=== PATIENT | male | born 1960 | race Caucasian/White ===

== ENCOUNTER → 2016-11-10 | Outpatient (CLI) | payer MEDICARE ==
[~2016-11-10] MED LIST: CIPRO500 MG PO; HUMALOG100 UNIT/1 SQ; TRAMADOL HCL50 MG PO
[2016-11-10 08:37] LABS: BASO % 0.7 % (0.0-1.0); EOS % 0.6 % (1.0-4.0); HEMATOCRIT 38.1 % (42.0-52.0); HEMOGLOBIN 12.9 g/dl (14.0-18.0); LYMPH # 2.4 10*3/uL (1.3-4.4); LYMPH % 43.9 % (27.0-41.0); MEAN CELL VOLUME 90.9 fl (80.0-94.0); MEAN CORPUSCULAR HGB 30.8 pg (27.0-31.0); MEAN CORPUSCULAR HGB CONC 33.9 g/dl (33.0-37.0); MEAN PLATELET VOLUME 9.8 fl (9.6-12.3); MONO # 0.5 10*3/uL (0.1-1.0); MONO % 9.3 % (3.0-9.0); NEUT # 2.4 10*3/uL (2.3-7.9); NEUT % 45.3 % (47.0-73.0); PLATELET COUNT AUTOMATED 171 10*3/uL (130-400); RED BLOOD COUNT 4.19 10*6/uL (4.50-5.90); RED CELL DISTRI WIDTH 13.7 % (0-14.5); WHITE BLOOD COUNT 5.4 10*3/uL (4.8-10.8)
[2016-11-10 08:56] LABS: HEMOGLOBIN A1c 6.7 % (4.8-5.6)
[2016-11-10 09:06] LABS: ALBUMIN 3.2 gm/dl (3.1-4.5); ALKALINE PHOSPHATASE 93 U/L (45-117); BILIRUBIN, DIRECT 0.1 mg/dL (0.0-0.2); BILIRUBIN, TOTAL 0.5 mg/dl (0.2-1.0); BUN 7 mg/dl (7-24); CARBON DIOXIDE 27 mmol/L (21-32); CHLORIDE 102 mmol/L (98-107); CHOLESTEROL 156 mg/dL (<200); EST GLOM FILT AFRICAN AMERICAN > 60 ml/min; FREE T4 1.06 ng/dl (0.76-1.46); GLUCOSE 184 mg/dL (65-99); HDL CHOLESTEROL 40 mg/dl (40-60); LDL CHOLESTEROL 96 mg/dL (9-159); POTASSIUM 3.4 mmol/L (3.5-5.1); SGOT/AST 13 IU/L (3-35); SGPT/ALT 18 U/L (12-78); SODIUM 142 mmol/L (136-145); T3 UPTAKE 31 % (31-39); TOTAL PROTEIN 7.3 gm/dL (6.4-8.2); TRIGLYCERIDES 101 mg/dl (<150); VLDL CHOLESTEROL 20 mg/dL (6-40)
== END | disposition home or self-care (01) ==
LOC: LAB 08:21
PROVIDERS: Nurse Practitioner Family
DX: Z79.899 Other long term (current) drug therapy (principal)

== ENCOUNTER 2016-12-14 15:26 | Emergency (ER) | payer MEDICARE ==
[~2016-12-14] VITALS: Wt 80.7 kg
[2016-12-14] MEDS ORDERED: LISINOPRIL10 M1 PO (15:32)
[2016-12-14] MEDS ORDERED: LANTUS100 U/ML SC (15:33)
[2016-12-14] MEDS ORDERED: DIAZEPAM5 MG PO (15:33)
[2016-12-14] MEDS ORDERED: CLOPIDOGREL75 MG PO (15:33)
[2016-12-14] MEDS ORDERED: RISPERIDONE4 MG PO (15:33)
[2016-12-14] MEDS ORDERED: ATORVASTATIN CA80 M1 PO (15:33)
[2016-12-14] MEDS ORDERED: METFORMIN HCL500 MG PO (15:33)
[2016-12-14] MEDS ORDERED: DIVALPROEX SOD500 M1 PO (15:33)
[2016-12-14 18:59] VITALS: BP 146/73
== END 2016-12-14 19:27 | disposition short-term general hospital (02) ==
LOC: ED 15:26
DX: I63.9 Cerebral infarction, unspecified (principal); F17.200 Nicotine dependence, unspecified, uncomplicated; Z79.4 Long term (current) use of insulin; W10.9XXA Fall (on) (from) unspecified stairs and steps, initial encounter; Y93.89 Activity, other specified; Y92.9 Unspecified place or not applicable; Y99.9 Unspecified external cause status

== ENCOUNTER 2017-02-06 17:23 | Inpatient (IN) | payer MEDICARE ==
[~2017-02-06] VITALS: Ht 170.2 cm; Wt 76.8 kg
--- NOTE | ~2017-02-06 | CON ---
[place], [place] REPORT OF CONSULTATION [id number] UNIT #: [id number] ROOM: 405 DOCTOR: REKHA CHAIREZ MD BIRTHDATE: [birth year] DOS: REASON FOR CONSULTATION: Recurrent strokes. HISTORY OF PRESENT ILLNESS: The patient is a 56-year-old man who has a history of type 2 diabetes mellitus and hypertension. He was otherwise in a normal state of health until 06/2016 when he reportedly had a stroke. He tells me that he presented to the Emergency Room and was transferred to the [facility] in [place]. Those records are not available to me at this time and the patient is not sure how extensive workup he had. He apparently was transferred again to [facility] and again those records are not available. The patient states that since his initial presentation in June, he has had 5 additional strokes. He describes trouble speaking during these episodes and clumsiness on his left side. He presents on this admission with inability to walk and new weakness on his right side as well as involuntary movements of his right arm. Since he has been in the hospital, he has had a CAT scan of the brain, which was unremarkable. He has had an MRI and MRA of the brain that shows an acute left basal ganglia infarct and an old right basal ganglia infarct, but no carotid stenosis or aneurysm. Cardiology was asked to assist in his assessment. Reportedly, the patient did have a Holter monitor done as an outpatient from [place]. There was some confusion. In that, the patient stated it was done by Dr. Beasley. I have reviewed the records from [facility] and we have not previously had any association with the patient or his evaluation. PAST MEDICAL HISTORY: Includes: 1. Type 2 diabetes mellitus. 2. Hypertension. 3. Tobacco abuse. 4. Reportedly, 6 strokes since 07/11/2016. 5. MRI of the brain 02/07/2017 shows an acute left basal ganglion infarct and an old right basal ganglion infarct. No carotid stenosis or aneurysm were seen. 6. Echocardiogram 02/08/2017, normal left ventricular size with mild left ventricular hypertrophy, normal left ventricular systolic and diastolic functions, normal valves, no cardiac source of embolism obvious. MEDICATIONS PRIOR TO ADMISSION: Aspirin 81 mg daily, atorvastatin 80 mg daily, clopidogrel 75 mg daily, diazepam 5 mg b.i.d., divalproex 500 mg 2 tablets daily, vitamin D 50,000 units daily, Lexapro 5 mg daily, haloperidol 5 mg at bedtime, levofloxacin 500 mg daily, lisinopril 20 mg daily, mirtazapine 45 mg at bedtime, prednisone 10 mg on a tapering dose schedule, insulin NovoLog 8 units subcutaneously t.i.d. and Lantus 40 units subcutaneously at bedtime. ALLERGIES: The patient has no known drug allergies. REVIEW OF SYSTEMS: The patient denies diplopia. He has had difficulty with his speech. He has felt clumsy on his left side and now is weak on his right. He also has involuntary movements of his right arm. He denies syncope. He denies nausea or vomiting. He denies fevers, chills, sweats or recent weight change. [place], [place] REPORT OF CONSULTATION NAME: ALONZO GONZALEZ UNIT #: [id number] ROOM: 405 DOCTOR: REKHA CHAIREZ MD BIRTHDATE: [birth year] He denies bleeding from any site. Denies any history of hemoptysis or hematemesis. He denies any blood in his urine or stools. He denies any swollen joints, but states that he gets a rash on his left hand every time he has a stroke. He denies any peripheral edema. The remainder of the review of systems is negative except as noted above. FAMILY HISTORY: The patient's father has had a stroke. There is no family history of early coronary disease. SOCIAL HISTORY: The patient does smoke a half pack of cigarettes a day. He does not consume alcohol. PHYSICAL EXAMINATION: GENERAL: The patient is a well-nourished white male who is awake, alert and oriented. VITAL SIGNS: Pulse is 63 and regular, blood pressure is 160/70. He is afebrile. He weighs 76.8 kg and has a body mass index of 26.5. HEENT: Normocephalic, atraumatic. Extraocular muscles are intact. Sclerae are clear. Pupils are round and reactive to light. Oral mucosa is moist. Tongue is midline. NECK: Supple. He has no jugular distention. Carotids are full. I heard no bruits. He had no neck or supraclavicular masses. No thyromegaly. LUNGS: Respirations are unlabored. His chest is clear to auscultation and percussion. He has no presacral edema or chest wall tenderness. CARDIOVASCULAR: His heart has a regular rhythm. He has a fourth heart sound, but no third heart sound or murmur. The PMI is not displaced. There is no precordial heave, lift or thrill. ABDOMEN: Soft and normoactive without masses, organomegaly or bruits. EXTREMITIES: Showed no clubbing, cyanosis or edema. Peripheral pulses are easily palpated bilaterally. LABORATORY DATA: I reviewed his electrocardiogram, which shows sinus rhythm with early repolarization changes. No acute changes are seen. His echocardiogram as noted above shows no cardiac source of embolism. Hemoglobin is 12.7, white count 14,300, platelet count 225,000. Urinalysis is essentially unremarkable. Sodium is 143, potassium 4.1, chloride 100, CO2 28, BUN 17, creatinine 0.69. Sugar is 195. IMPRESSIONS: Multiple bilateral strokes of various ages documented by MRI of the brain. This suggests a central vascular source rather than carotid vascular disease. A cardiac source such as paroxysmal atrial fibrillation, left atrial myxoma, atrial septal defect with paradoxic emboli, etc., must be considered. Evaluation for hypercoagulable state also needs to be entertained. The patient has been evaluated twice at the [facility] and some of this evaluation may already be available. I strongly suggest that those records being obtained and reviewed. If he has not had a JOAO, that should be accomplished during this admission. Since he has already had bilateral strokes, I think that he should be anticoagulated with heparin and [place], [place] REPORT OF CONSULTATION NAME: [facility] [id number] UNIT #: [id number] ROOM: 405 DOCTOR: REKHA CHAIREZ MD BIRTHDATE: [birth year] possibly with an oral anticoagulant until his hypercoagulable evaluation and JOAO are available. [facility] and I thank the hospitalist physicians for asking our advice regarding the management of this patient. REKHA CHAIREZ MD CM:CONSTR:REPORT OF CONSULTATION 1451 02/09/17 2019 interface
--- NOTE | ~2017-02-06 | PR ---
[place], [place] PROGRESS NOTE NAME: ALONZO GONZALEZ UNIT #: [id number] ROOM: 405 DOCTOR: THOR GOODEN MD BIRTHDATE: [birth year] DOS: 02/12/2017 REASON FOR VISIT: The patient with CVA and syncope. INTERVAL HISTORY: The patient is feeling better. Denies any chest pain or shortness of breath. He is somewhat slow to respond to questions. Family is at bedside. No dizziness. No orthopnea, no visual symptoms. No fever or chills, no cough. No hemoptysis. VITAL SIGNS: Reviewed. MEDICATIONS: Reviewed. REVIEW OF SYSTEMS: Review of the 8 systems negative except as mentioned above. PHYSICAL EXAMINATION: EYES: Pupils are round and equal. No jaundice. GENERAL: The patient is alert and oriented. NECK: Supple. No distinct mass, no carotid bruit. CHEST: Symmetrical, nontender. LUNGS: Clear to auscultation bilaterally. HEART: Regular rhythm, no S3. ABDOMEN: Benign, nontender. Bowel sounds normal. EXTREMITIES: Showed no edema. Distal pulses are palpable. SKIN: Warm and dry. No cyanosis, no clubbing. IMPRESSION: 1. Recurrent cerebrovascular accidents, continue current medications including Coumadin, heparin. He needs to be on heparin until INR therapeutic at about 2.0. 2. Syncope, no recurrence. 3. Continue current medications. 4. Discussed with family and all the questions are answered. 5. He was scheduled to see doctor in [place] and he was advised that he need to see only 1 crime investigator special agent either [facility] in [place] or someone in [place] and the family will decide prior to discharge. [place], [place] PROGRESS NOTE NAME: ALONZO GONZALEZ UNIT #: [id number] ROOM: 405 DOCTOR: THOR GOODEN MD BIRTHDATE: [birth year] THOR GOODEN MD CM:PNTRANS 0927 THOR GOODEN MD 02/14/17 0612 interface
--- NOTE | ~2017-02-06 | WRIGHTHP ---
[place], [place] PATIENT HISTORY AND PHYSICAL EXAM NAME: ALONZO GONZALEZ [facility] #: [id number] UNIT #: [id number] ROOM: 405 DOCTOR: ABNER TIDWELL DO BIRTHDATE: [birth year] DOS: PRIMARY CARE PHYSICIAN: Dr. Remedios Gomez. The patient was seen and evaluated with the resident on 02/07/2017. Please see the resident's note for further details. ASSESSMENT: 1. Acute pneumonitis. 2. Dizziness. 3. Difficulty in ambulating with multiple falls on the day of admission. 4. Hypokalemia. 5. Diabetes mellitus type 2. 6. Hypertension. 7. Hyperlipidemia. 8. Tobacco abuse. 9. History of cerebrovascular accident in August of 2016 and November of 2016. The patient states he has no residual weakness from the strokes. 10. Bipolar disorder. 11. Depression. PLAN: Continue antibiotics, aerosol treatments and steroids. The patient will be kept again overnight. Physical therapy has been consulted. Continue supportive care. ABNER TIDWELL DO CM:HISPHYS:PATIENT HISTORY AND PHYSICAL EXAMINATION 1214 1259 ABNER TIDWELL DO 02/07/17 1259 interface
--- NOTE | ~2017-02-06 | PR ---
[place], [place] PROGRESS NOTE NAME: ALONZO GONZALEZ [facility] #: [id number] UNIT #: [id number] ROOM: 405 DOCTOR: REKHA CHAIREZ MD BIRTHDATE: [birth year] DOS: The patient was seen today at his bedside with family in attendance. He is a 56-year-old man who has had cryptogenic bilateral embolic strokes. He was evaluated at the [facility], but came into the hospital at [facility] with recurrent strokes on 02/06/2017. At the time of admission, he was taking aspirin and Plavix as antiplatelet therapies. He was not on full systemic anticoagulation. I requested records from [facility]. SUBJECTIVE: The patient was thoroughly evaluated for cryptogenic stroke at [facility]. This included an assessment for hypercoagulable state. The results were not available at the time the records were created. He also had a transesophageal echocardiogram, which showed no intracardiac shunt, no tumors and no cardiac source of emboli. At the time of his discharge, he was on aspirin and Eliquis. Plavix had been previously prescribed, but was stopped. Sometime between his discharge from [facility] and his admission here, he had gone back to the Plavix. As best I can tell from him and his partner either he did not get the prescription for Eliquis or the prescription was too expensive. In either case, he had gone back to aspirin and Plavix, which appears to not have been sufficient to prevent further strokes. PHYSICAL EXAMINATION: VITAL SIGNS: Today, his pulse is 68 and regular, blood pressure 138/70. He is afebrile. He weighs 76.8 kilograms with a body mass index of 26.5. HEENT: Normocephalic, atraumatic. Extraocular muscles are intact. Sclerae are clear. Pupils are equal, round and reactive to light. The oral mucosa is moist. Tongue is midline. NECK: Supple. He has no jugular distention. Carotids are full without bruits. He has no neck or supraclavicular masses. LUNGS: Respirations are unlabored. His chest is clear to auscultation and percussion. HEART: Has a regular rhythm with an S4 gallop, but no S3. ABDOMEN: Benign. EXTREMITIES: Showed no edema. IMPRESSION: Cryptogenic stroke, most likely of cardioembolic source. He may also have a hypercoagulable state, but thus far, his evaluation for this is incomplete. He does not show any signs of intracardiac mass, shunt, etc. We have not documented any atrial arrhythmias that could be a cause. PLAN: The patient is currently on a heparin infusion. We will start him on warfarin with a target INR between 2 and 3 and will continue his aspirin, but stop his Plavix. The patient and his partner were educated on the importance of full systemic anticoagulation as opposed to antiplatelet therapies and hopefully they will comply better in the future. [facility] and I thank the hospitalist physicians for asking our advice regarding the patient's care. [place], [place] PROGRESS NOTE NAME: ALONZO GONZALEZ UNIT #: [id number] ROOM: 405 DOCTOR: REKHA CHAIREZ MD BIRTHDATE: [birth year] REKHA CHAIREZ MD CM:PNTRANS 09 6 REKHA CHAIREZ MD 02/11/17135 interface
--- NOTE | ~2017-02-06 | PR ---
[place], [place] PROGRESS NOTE NAME: ALONZO GONZALEZ UNIT #: [id number] ROOM: 405 DOCTOR: THOR GOODEN MD BIRTHDATE: [birth year] DOS: 02/13/2017 REASON FOR VISIT: Syncope and recurrent strokes and tobacco use. HISTORY OF PRESENT ILLNESS: The patient is feeling better today. No chest pain, no shortness of breath, no dizziness, no edema, no orthopnea, no palpitations. He slept good last night. RHYTHM STRIPS: The patient is off the monitor. PHYSICAL EXAMINATION: VITAL SIGNS: Reviewed. Blood pressure 138/76, pulse 64, respirations 16. GENERAL: Alert, comfortable, in no acute distress. HEENT: Pupils round, equal. No jaundice. Tongue was moist and pharynx was clear. NECK: Supple. No distended neck veins. No carotid bruits. CHEST: Symmetrical, nontender. LUNGS: Clear to auscultation bilaterally. HEART: Regular rhythm, no S3. ABDOMEN: Benign, nontender. Bowel sounds normal. EXTREMITIES: Showed no edema. Distal pulses are palpable. SKIN: Warm and dry. No cyanosis, no clubbing. NEUROLOGIC: The patient is alert, oriented. No focal neurologic deficit. Medications and labs reviewed as available. IMPRESSION: 1. Syncope, details unknown. No recurrence. 2. Recurrent strokes. The patient had a workup done in [place]. His hypercoagulable tests are pending. Continue heparin. Today's INR is 2.4. If his INR is about 2 tomorrow, he can be discharged home and discontinue heparin. 3. Diabetes, per PCP. 4. Tobacco smoking. The patient counseled to quit smoking. PLAN: 1. There is no family at bedside at the time of my examination. 2. Possible discharge tomorrow. [place], [place] PROGRESS NOTE NAME: ALONZO GONZALEZ UNIT #: [id number] ROOM: 405 DOCTOR: THOR GOODEN MD BIRTHDATE: [birth year] THOR GOODEN MD CM:PNTRANS 1639 THOR GOODEN MD 02/13/173 interface
--- NOTE | ~2017-02-06 | PR ---
[place], [place] PROGRESS NOTE NAME: ALONZO GONZALEZ [facility] #: [id number] UNIT #: [id number] ROOM: 405 DOCTOR: REKHA CHAIREZ MD BIRTHDATE: [birth year] DOS: 02/11/2017 SUBJECTIVE: The patient was seen today, 02/11/2017, for followup of his cryptogenic strokes. As I mentioned in my notes yesterday, he has had several strokes since June of last year. He was evaluated at the [facility] where hypercoagulability workup was in progress. I do not have the results of that. A JOAO showed no evidence for cardiac source of emboli and specifically did not show an atrial septal defect, left atrial appendage thrombus or myxoma. He has worn monitors and thus far has only been found to have sinus rhythm. He presented to the hospital on this occasion with another stroke. The MRI shows that he does have bilateral apparently embolic phenomena. He has been placed on heparin and now on Coumadin and does seem to be recovering from his last stroke really well. It is notable that he was discharged from [facility] on a direct oral anticoagulant, but never took the pill as an outpatient. He is not sure if he was not given the prescription or he just never got the prescription filled. Because of cost issues, we are starting him on warfarin on this admission. PHYSICAL EXAMINATION: VITAL SIGNS: Today, his pulse is 80 and regular, blood pressure is 139/58. He is afebrile. NECK: Supple. He has no jugular distention. Carotids are full without bruits. LUNGS: Respirations are unlabored. His chest is clear to auscultation and percussion. HEART: Has a regular rhythm. He has a fourth heart sound, but no third heart sound. ABDOMEN: Benign. EXTREMITIES: Showed no edema. IMPRESSION: Cryptogenic stroke, most likely of cardioembolic source. A hypercoagulable state is also a possibility. The evaluation for hypercoagulable state is incomplete. PLAN: We will keep him on a heparin drip. He has been started on warfarin. His target INR will be between 2 and 3. I would keep him on heparin until he approaches his target. Close followup will be necessary to ensure compliance. [facility] Cardiology and I thank the hospitalist physicians for asking our advice regarding his care. [place], [place] PROGRESS NOTE NAME: ALONZO GONZALEZ UNIT #: [id number] ROOM: 405 DOCTOR: REKHA CHAIREZ MD BIRTHDATE: [birth year] REKHA CHAIREZ MD CM:PNTRANS 1609 0200 REKHA CHAIREZ MD 02/12/17 0158 interface
[2017-02-06 08:00] VITALS: BP 132/55
[~2017-02-06 17:23] MED LIST changes: +ATORVASTATIN CA80 M1 PO; +CLOPIDOGREL75 MG PO; +DIAZEPAM5 MG PO; +DIVALPROEX SOD500 M1 PO; +LANTUS100 U/ML SC; +LISINOPRIL10 M1 PO; +METFORMIN HCL500 MG PO; +RISPERIDONE4 MG PO
[2017-02-06 17:28] VITALS: BP 147/64
[2017-02-06 17:58] LABS: BASO % 0.3 % (0.0-1.0); EOS # 0.1 10*3/uL (0.0-0.4); EOS % 0.7 % (1.0-4.0); HEMATOCRIT 36.8 % (42.0-52.0); HEMOGLOBIN 12.9 g/dl (14.0-18.0); LYMPH # 2.4 10*3/uL (1.3-4.4); LYMPH % 27.1 % (27.0-41.0); MEAN CELL VOLUME 88.5 fl (80.0-94.0); MEAN CORPUSCULAR HGB CONC 35.1 g/dl (33.0-37.0); MONO # 0.5 10*3/uL (0.1-1.0); MONO % 5.5 % (3.0-9.0); NEUT # 5.9 10*3/uL (2.3-7.9); NEUT % 66.2 % (47.0-73.0); PLATELET COUNT AUTOMATED 184 10*3/uL (130-400); RED BLOOD COUNT 4.16 10*6/uL (4.50-5.90); WHITE BLOOD COUNT 8.9 10*3/uL (4.8-10.8)
[2017-02-06 18:14] LABS: ALBUMIN 3.1 gm/dl (3.1-4.5); ALKALINE PHOSPHATASE 89 U/L (45-117); BILIRUBIN, TOTAL 0.5 mg/dl (0.2-1.0); BUN 9 mg/dl (7-24); CARBON DIOXIDE 30 mmol/L (21-32); CHLORIDE 99 mmol/L (98-107); EST GLOM FILT AFRICAN AMERICAN > 60 ml/min; GLUCOSE 193 mg/dL (65-99); SGOT/AST 12 IU/L (3-35); SGPT/ALT 11 U/L (12-78); SODIUM 140 mmol/L (136-145); TOTAL PROTEIN 7.5 gm/dL (6.4-8.2)
[2017-02-06 18:41] VITALS: BP 171/62
[2017-02-06 19:02] VITALS: BP 161/69
[2017-02-06 19:27] VITALS: BP 162/67
[2017-02-06 19:55] LABS: LA>2 REFLEX 2 HR DRAW NOW
[2017-02-06 20:00] VITALS: BP 174/70
[2017-02-06] MEDS ORDERED: NOVOLOG10 ML SC (20:24)
[2017-02-06] MEDS ORDERED: ASPIRIN CHEWABL81 MG PO (20:24)
[2017-02-06] MEDS ORDERED: LEXAPRO5 M1 PO (20:26)
[2017-02-06] MEDS ORDERED: HALDOL5 MG PO (20:26)
[2017-02-06] MEDS ORDERED: MIRTAZAPINE45 MG PO (20:26)
[2017-02-06 23:06] LABS: BILIRUBIN NEGATIVE (NEGATIVE); BLOOD NEGATIVE (NEGATIVE); CLARITY CLEAR (CLEAR); COLOR YELLOW (YELLOW); GLUCOSE 2+ (NEGATIVE); KETONE TRACE (NEGATIVE); LEUKO ESTERASE NEGATIVE (NEGATIVE); NITRITE NEGATIVE (NEGATIVE); PH 6.5 (5.0-9.0); PROTEIN TRACE (NEGATIVE)
[2017-02-06 23:16] LABS: BACTERIA 1+; URINE REFLEX COMMENT NO (NO); WBC 0-2 wbc/hpf (0-5)
[2017-02-07] VITALS: BP 157/55
[2017-02-07 03:05] LABS: BASO % 0.5 % (0.0-1.0); EOS # 0.1 10*3/uL (0.0-0.4); EOS % 1.6 % (1.0-4.0); HEMATOCRIT 37.2 % (42.0-52.0); HEMOGLOBIN 12.8 g/dl (14.0-18.0); LYMPH # 2.5 10*3/uL (1.3-4.4); LYMPH % 32.7 % (27.0-41.0); MEAN CELL VOLUME 88.8 fl (80.0-94.0); MEAN CORPUSCULAR HGB 30.5 pg (27.0-31.0); MEAN CORPUSCULAR HGB CONC 34.4 g/dl (33.0-37.0); MEAN PLATELET VOLUME 10.8 fl (9.6-12.3); MONO # 0.5 10*3/uL (0.1-1.0); MONO % 6.8 % (3.0-9.0); NEUT # 4.5 10*3/uL (2.3-7.9); NEUT % 58.3 % (47.0-73.0); PLATELET COUNT AUTOMATED 189 10*3/uL (130-400); RED BLOOD COUNT 4.19 10*6/uL (4.50-5.90); WHITE BLOOD COUNT 7.7 10*3/uL (4.8-10.8)
[2017-02-07 03:21] LABS: HEMOGLOBIN A1c 7.5 % (4.8-5.6)
[2017-02-07 03:27] LABS: ALBUMIN 2.8 gm/dl (3.1-4.5); ALKALINE PHOSPHATASE 84 U/L (45-117); BILIRUBIN, TOTAL 0.4 mg/dl (0.2-1.0); BUN 8 mg/dl (7-24); CARBON DIOXIDE 31 mmol/L (21-32); CHLORIDE 101 mmol/L (98-107); CHOLESTEROL 121 mg/dL (<200); EST GLOM FILT AFRICAN AMERICAN > 60 ml/min; GLUCOSE 158 mg/dL (65-99); MAGNESIUM 1.8 mg/dL (1.5-2.1); PHOSPHOROUS 4.4 mg/dL (2.5-4.9); POTASSIUM 3.2 mmol/L (3.5-5.1); SGOT/AST 13 IU/L (3-35); SGPT/ALT 10 U/L (12-78); SODIUM 144 mmol/L (136-145); TOTAL PROTEIN 6.9 gm/dL (6.4-8.2); TRIGLYCERIDES 125 mg/dl (<150); VLDL CHOLESTEROL 25 mg/dL (6-40)
[2017-02-07 03:28] LABS: HDL CHOLESTEROL 39 mg/dl (40-60); LDL CHOLESTEROL 57 mg/dL (9-159)
[2017-02-07 03:43] LABS: VITAMIN D, 25-HYDROXY 10.1 ng/mL (30-100)
[2017-02-07 03:44] LABS: FOLIC ACID 7.95 ng/mL (>5.38)
[2017-02-07 12:00] VITALS: BP 162/72
[2017-02-07 16:00] VITALS: BP 157/74
[2017-02-07 20:00] VITALS: BP 153/67
[2017-02-08] VITALS: BP 178/88
[2017-02-08 03:58] VITALS: BP 172/80
[2017-02-08 05:39] LABS: BASO % 0.1 % (0.0-1.0); HEMATOCRIT 37.5 % (42.0-52.0); IG # 0.1 10*3/uL (0.0-0.1); LYMPH # 1.5 10*3/uL (1.3-4.4); LYMPH % 15.5 % (27.0-41.0); MEAN CELL VOLUME 87.6 fl (80.0-94.0); MEAN CORPUSCULAR HGB 30.4 pg (27.0-31.0); MEAN CORPUSCULAR HGB CONC 34.7 g/dl (33.0-37.0); MEAN PLATELET VOLUME 11.2 fl (9.6-12.3); MONO # 0.2 10*3/uL (0.1-1.0); MONO % 2.1 % (3.0-9.0); NEUT # 7.9 10*3/uL (2.3-7.9); NEUT % 81.6 % (47.0-73.0); PLATELET COUNT AUTOMATED 208 10*3/uL (130-400); RED BLOOD COUNT 4.28 10*6/uL (4.50-5.90); WHITE BLOOD COUNT 9.7 10*3/uL (4.8-10.8)
[2017-02-08 06:02] LABS: BUN 11 mg/dl (7-24); CARBON DIOXIDE 26 mmol/L (21-32); CHLORIDE 101 mmol/L (98-107); GLUCOSE 214 mg/dL (65-99); MAGNESIUM 1.9 mg/dL (1.5-2.1); POTASSIUM 3.6 mmol/L (3.5-5.1); SGPT/ALT 9 U/L (12-78); SODIUM 141 mmol/L (136-145)
[2017-02-08 06:05] LABS: ALKALINE PHOSPHATASE 82 U/L (45-117); BILIRUBIN, TOTAL 0.4 mg/dl (0.2-1.0); EST GLOM FILT AFRICAN AMERICAN > 60 ml/min; SGOT/AST 8 IU/L (3-35); TOTAL PROTEIN 7.3 gm/dL (6.4-8.2)
[2017-02-08 08:00] VITALS: BP 154/80
[2017-02-08 12:00] VITALS: BP 158/71
[2017-02-08 16:00] VITALS: BP 170/70
[2017-02-08 20:00] VITALS: BP 161/77
[2017-02-09] VITALS: BP 165/75
[2017-02-09 06:29] LABS: BASO % 0.1 % (0.0-1.0); HEMATOCRIT 37.3 % (42.0-52.0); HEMOGLOBIN 12.7 g/dl (14.0-18.0); IG # 0.1 10*3/uL (0.0-0.1); LYMPH % 14.1 % (27.0-41.0); MEAN CORPUSCULAR HGB 30.3 pg (27.0-31.0); MEAN PLATELET VOLUME 11.1 fl (9.6-12.3); MONO # 0.5 10*3/uL (0.1-1.0); MONO % 3.5 % (3.0-9.0); NEUT # 11.7 10*3/uL (2.3-7.9); NEUT % 81.6 % (47.0-73.0); PLATELET COUNT AUTOMATED 225 10*3/uL (130-400); RED BLOOD COUNT 4.19 10*6/uL (4.50-5.90); RED CELL DISTRI WIDTH 13.2 % (0-14.5); WHITE BLOOD COUNT 14.3 10*3/uL (4.8-10.8)
[2017-02-09 06:50] LABS: BUN 17 mg/dl (7-24); CARBON DIOXIDE 28 mmol/L (21-32); CHLORIDE 100 mmol/L (98-107); EST GLOM FILT AFRICAN AMERICAN > 60 ml/min; GLUCOSE 195 mg/dL (65-99); POTASSIUM 4.1 mmol/L (3.5-5.1); SODIUM 143 mmol/L (136-145)
[2017-02-09 08:00] VITALS: BP 158/76
[2017-02-09 12:00] VITALS: BP 163/71
[2017-02-09] MEDS ORDERED: LISINOPRIL20 MG PO (13:33)
[2017-02-09] MEDS ORDERED: PREDNISONE10 MG PO (13:33)
[2017-02-09] MEDS ORDERED: VITAMIN D50000 I3 PO (13:33)
[2017-02-09] MEDS ORDERED: LEVOFLOXACIN500 MG PO (13:33)
[2017-02-09 15:23] LABS: PROTHROMBIN TIME 10.7 SECONDS (9.0-12.4)
[2017-02-09 16:00] VITALS: BP 146/82
[2017-02-09 20:00] VITALS: BP 139/68
[2017-02-10] VITALS: BP 174/64
[2017-02-10 05:54] LABS: BASO % 0.1 % (0.0-1.0); EOS % 0.1 % (1.0-4.0); HEMOGLOBIN 14.2 g/dl (14.0-18.0); IG # 0.1 10*3/uL (0.0-0.1); LYMPH # 1.8 10*3/uL (1.3-4.4); LYMPH % 19.8 % (27.0-41.0); MEAN CELL VOLUME 89.3 fl (80.0-94.0); MEAN CORPUSCULAR HGB 30.9 pg (27.0-31.0); MEAN CORPUSCULAR HGB CONC 34.6 g/dl (33.0-37.0); MEAN PLATELET VOLUME 10.8 fl (9.6-12.3); MONO # 0.3 10*3/uL (0.1-1.0); MONO % 3.7 % (3.0-9.0); NEUT % 75.7 % (47.0-73.0); PLATELET COUNT AUTOMATED 238 10*3/uL (130-400); RED BLOOD COUNT 4.59 10*6/uL (4.50-5.90); RED CELL DISTRI WIDTH 13.1 % (0-14.5); WHITE BLOOD COUNT 9.3 10*3/uL (4.8-10.8)
[2017-02-10 06:10] LABS: BUN 17 mg/dl (7-24); CARBON DIOXIDE 30 mmol/L (21-32); CHLORIDE 98 mmol/L (98-107); EST GLOM FILT AFRICAN AMERICAN > 60 ml/min; GLUCOSE 235 mg/dL (65-99); POTASSIUM 4.1 mmol/L (3.5-5.1); SODIUM 137 mmol/L (136-145)
[2017-02-10 08:00] VITALS: BP 158/71
[2017-02-10 12:00] VITALS: BP 136/68
[2017-02-10 16:00] VITALS: BP 138/70
[2017-02-10 20:00] VITALS: BP 149/69
[2017-02-11] VITALS: BP 156/74
[2017-02-11 04:00] VITALS: BP 154/74
[2017-02-11 06:14] LABS: BASO % 0.1 % (0.0-1.0); HEMATOCRIT 37.8 % (42.0-52.0); IG # 0.1 10*3/uL (0.0-0.1); LYMPH # 2.9 10*3/uL (1.3-4.4); LYMPH % 26.6 % (27.0-41.0); MEAN CELL VOLUME 88.5 fl (80.0-94.0); MEAN CORPUSCULAR HGB 30.4 pg (27.0-31.0); MEAN CORPUSCULAR HGB CONC 34.4 g/dl (33.0-37.0); MEAN PLATELET VOLUME 10.3 fl (9.6-12.3); MONO # 0.6 10*3/uL (0.1-1.0); MONO % 5.4 % (3.0-9.0); NEUT # 7.4 10*3/uL (2.3-7.9); NEUT % 67.3 % (47.0-73.0); PLATELET COUNT AUTOMATED 217 10*3/uL (130-400); RED BLOOD COUNT 4.27 10*6/uL (4.50-5.90); RED CELL DISTRI WIDTH 13.1 % (0-14.5); WHITE BLOOD COUNT 10.9 10*3/uL (4.8-10.8)
[2017-02-11 06:48] LABS: BUN 18 mg/dl (7-24); CARBON DIOXIDE 29 mmol/L (21-32); CHLORIDE 99 mmol/L (98-107); EST GLOM FILT AFRICAN AMERICAN > 60 ml/min; GLUCOSE 206 mg/dL (65-99); POTASSIUM 3.8 mmol/L (3.5-5.1); SODIUM 137 mmol/L (136-145)
[2017-02-11 06:55] LABS: PROTHROMBIN TIME 10.9 SECONDS (9.0-12.4)
[2017-02-11 08:00] VITALS: BP 143/74
[2017-02-11 12:00] VITALS: BP 134/67
[2017-02-11 16:00] VITALS: BP 139/58
[2017-02-11 20:00] VITALS: BP 137/75
[2017-02-12] VITALS: BP 131/84
[2017-02-12 06:24] LABS: BASO % 0.2 % (0.0-1.0); HEMATOCRIT 40.1 % (42.0-52.0); HEMOGLOBIN 13.6 g/dl (14.0-18.0); IG # 0.1 10*3/uL (0.0-0.1); LYMPH # 2.9 10*3/uL (1.3-4.4); LYMPH % 26.4 % (27.0-41.0); MEAN CELL VOLUME 90.5 fl (80.0-94.0); MEAN CORPUSCULAR HGB 30.7 pg (27.0-31.0); MEAN CORPUSCULAR HGB CONC 33.9 g/dl (33.0-37.0); MEAN PLATELET VOLUME 10.8 fl (9.6-12.3); MONO # 0.6 10*3/uL (0.1-1.0); MONO % 5.4 % (3.0-9.0); NEUT # 7.4 10*3/uL (2.3-7.9); NEUT % 66.9 % (47.0-73.0); NUCLEATED RED BLOOD CELL 0.2 % (0.0-0.0); PLATELET COUNT AUTOMATED 236 10*3/uL (130-400); RED BLOOD COUNT 4.43 10*6/uL (4.50-5.90); RED CELL DISTRI WIDTH 13.2 % (0-14.5)
[2017-02-12 06:44] LABS: INTERNATIONAL NORM RATIO 1.4 (2.0-3.5); PROTHROMBIN TIME 15.7 SECONDS (9.0-12.4)
[2017-02-12 06:55] LABS: BUN 16 mg/dl (7-24); CARBON DIOXIDE 29 mmol/L (21-32); CHLORIDE 100 mmol/L (98-107); EST GLOM FILT AFRICAN AMERICAN > 60 ml/min; GLUCOSE 183 mg/dL (65-99); SODIUM 138 mmol/L (136-145)
[2017-02-12 08:00] VITALS: BP 143/69
[2017-02-12 12:00] VITALS: BP 143/60
[2017-02-12 16:00] VITALS: BP 137/67
[2017-02-12 20:00] VITALS: BP 144/65
[2017-02-13] VITALS: BP 143/68
[2017-02-13 06:21] LABS: INTERNATIONAL NORM RATIO 2.4 (2.0-3.5)
[2017-02-13 08:00] VITALS: BP 138/60
[2017-02-13] MEDS ORDERED: COUMADIN5 M2 PO (11:31)
[2017-02-17 14:09] LABS: ANTI-THROMBIN III ACTIVITY 116 % (75-135); LUPUS DRVVT 41.5 sec (0.0-47.0); LUPUS REFLEX INTERPRETATION Comment: (.); PROTEIN S, FREE 149 % (57-157); PROTEIN S, TOTAL 136 % (60-150); PTT-LA 31.9 sec (0.0-43.6)
== END 2017-02-13 12:00 | disposition home health service (06) | DRG 64 ==
LOC: ED 17:23 → EDHOLD 19:12 → 4E 19:12
PROVIDERS: Emergency Medicine; Internal Medicine; Internal Medicine Cardiovascular Disease; Internal Medicine Hospice and Palliative Medicine
DX: I63.9 Cerebral infarction, unspecified (principal); J18.9 Pneumonia, unspecified organism; D68.59 Other primary thrombophilia; E11.65 Type 2 diabetes mellitus with hyperglycemia; J44.0 Chronic obstructive pulmonary disease with (acute) lower respiratory infection; J44.1 Chronic obstructive pulmonary disease with (acute) exacerbation; D64.9 Anemia, unspecified; E87.6 Hypokalemia; E55.9 Vitamin D deficiency, unspecified; I10 Essential (primary) hypertension; R53.1 Weakness; F17.210 Nicotine dependence, cigarettes, uncomplicated; W19.XXXS Unspecified fall, sequela; E78.5 Hyperlipidemia, unspecified; F31.9 Bipolar disorder, unspecified; Z90.49 Acquired absence of other specified parts of digestive tract; Z83.3 Family history of diabetes mellitus; Z79.01 Long term (current) use of anticoagulants; Z71.6 Tobacco abuse counseling; Z80.9 Family history of malignant neoplasm, unspecified; Z79.82 Long term (current) use of aspirin; Z79.4 Long term (current) use of insulin; Z79.899 Other long term (current) drug therapy

== ENCOUNTER 2018-02-19 19:36 | Emergency (ER) | payer MEDICARE ==
[~2018-02-19] VITALS: Ht 177.8 cm; Wt 86.2 kg
--- NOTE | ~2018-02-19 | EKG ---
[place], [place] ELECTROCARDIOGRAM REPORT NAME: ALONZO GONZALEZ UNIT #: [id number] ROOM: DOCTOR: PETRA GALEANA MD BIRTHDATE: [birth year] DOS: 02/19/2018 TIME: 1950 hours. FINDINGS: 1. Normal sinus rhythm at 71 beats per minute. 2. The tracing is normal. 3. No previous tracing is available for comparison. PETRA GALEANA MD CM:EKGRPT:ELECTROCARDIOGRAM REPORT 0924 1257 PETRA GALEANA MD
[~2018-02-19 19:36] MED LIST changes: +ASPIRIN CHEWABL81 MG PO; +COUMADIN5 M2 PO; +HALDOL5 MG PO; +LEVOFLOXACIN500 MG PO; +LEXAPRO5 M1 PO; +LISINOPRIL20 MG PO; +MIRTAZAPINE45 MG PO; +NOVOLOG10 ML SC; +PREDNISONE10 MG PO; +VITAMIN D50000 I3 PO
[2018-02-19 20:08] LABS: BASO # 0.1 10*3/uL (0.0-0.1); BASO % 0.7 % (0.0-1.0); EOS # 0.1 10*3/uL (0.0-0.4); HEMATOCRIT 46.3 % (42.0-52.0); HEMOGLOBIN 15.5 g/dl (14.0-18.0); LYMPH # 2.8 10*3/uL (1.3-4.4); LYMPH % 39.8 % (27.0-41.0); MEAN CORPUSCULAR HGB 30.5 pg (27.0-31.0); MEAN CORPUSCULAR HGB CONC 33.5 g/dl (33.0-37.0); MEAN PLATELET VOLUME 10.1 fl (9.6-12.3); MONO # 0.3 10*3/uL (0.1-1.0); MONO % 4.3 % (3.0-9.0); NEUT # 3.7 10*3/uL (2.3-7.9); NEUT % 53.1 % (47.0-73.0); PLATELET COUNT AUTOMATED 192 10*3/uL (130-400); RED BLOOD COUNT 5.09 10*6/uL (4.50-5.90); RED CELL DISTRI WIDTH 13.5 % (0-14.5)
[2018-02-19 20:18] LABS: ACT PARTIAL THROMBO TIME 32.3 SECONDS (20.8-31.5); INTERNATIONAL NORM RATIO 2.3 (2.0-3.5)
[2018-02-19] MEDS ORDERED: RISPERDAL3 M1 PO (20:18)
[2018-02-19] MEDS ORDERED: BENZTROPINE MESY1 MG PO (20:20)
[2018-02-19 20:26] LABS: ALBUMIN 3.6 gm/dl (3.1-4.5); ALKALINE PHOSPHATASE 109 U/L (45-117); BUN 3 mg/dl (7-24); CHLORIDE 102 mmol/L (98-107); CPK 67 U/L (39-308); CREATININE 0.73 mg/dL (0.70-1.30); POTASSIUM 3.1 mmol/L (3.5-5.1); SGOT/AST 8 IU/L (3-35); SGPT/ALT 12 U/L (12-78); SODIUM 142 mmol/L (136-145); TOTAL PROTEIN 7.7 gm/dL (6.4-8.2)
[2018-02-19 20:27] LABS: CKMB 0.8 ng/ml (0.5-3.6)
[2018-02-19 20:32] LABS: TROPONIN I < 0.015 ng/ml (<0.045)
[2018-02-19 21:19] VITALS: BP 195/70
== END 2018-02-19 21:26 | disposition left against medical advice (07) ==
LOC: ED 19:36
PROVIDERS: Emergency Medicine
DX: R27.0 Ataxia, unspecified (principal); F17.200 Nicotine dependence, unspecified, uncomplicated; E11.9 Type 2 diabetes mellitus without complications; I10 Essential (primary) hypertension; Z79.899 Other long term (current) drug therapy; Z79.4 Long term (current) use of insulin; Z90.49 Acquired absence of other specified parts of digestive tract; Z86.73 Personal history of transient ischemic attack (TIA), and cerebral infarction without residual deficits; Z79.82 Long term (current) use of aspirin

== ENCOUNTER 2019-07-13 15:55 | Emergency (ER) | payer MEDICARE ==
[~2019-07-13] VITALS: Ht 180.3 cm; Wt 72.6 kg
--- NOTE | ~2019-07-13 | EKG ---
[place], [place] ELECTROCARDIOGRAM REPORT NAME: ALONZO GONZALEZ UNIT #: [id number] ROOM: DOCTOR: EUNICE DRAFT REPORT BIRTHDATE: [birth year] [facility] Test Date: 2019-07-13 Test Time: 16:14:00 Pat Name: ALONZO GONZALEZ Department: Room: Gender: Pecan Gatherer: : 1960 Requested By: ABNER TIDWELL Order Number: [id number] Reading MD: Measurements Intervals [place] Rate: 81 P: 73 CA: 196 QRS: 35 QRSD: 93 T: 77 QT: 375 QTc: 436 Interpretive Statements Sinus rhythm Probable left atrial enlargement No previous ECG available for comparison CM:EKGRPT:ELECTROCARDIOGRAM REPORT 1317 ABNER SKINNER DRAFT REPORT ABNER TIDWELL DO
[~2019-07-13 15:55] MED LIST changes: +BENZTROPINE MESY1 MG PO; +RISPERDAL3 M1 PO
[2019-07-13 16:28] LABS: BASO % 0.5 % (0.0-1.0); EOS % 0.5 % (1.0-4.0); HEMATOCRIT 40.4 % (42.0-52.0); HEMOGLOBIN 13.6 g/dl (14.0-18.0); LYMPH # 1.4 10*3/uL (1.3-4.4); LYMPH % 17.2 % (27.0-41.0); MEAN CELL VOLUME 92.7 fl (80.0-94.0); MEAN CORPUSCULAR HGB 31.2 pg (27.0-31.0); MEAN CORPUSCULAR HGB CONC 33.7 g/dl (33.0-37.0); MEAN PLATELET VOLUME 10.2 fl (9.6-12.3); MONO # 0.3 10*3/uL (0.1-1.0); NEUT # 6.1 10*3/uL (2.3-7.9); NEUT % 77.5 % (47.0-73.0); PLATELET COUNT AUTOMATED 167 10*3/uL (130-400); RED BLOOD COUNT 4.36 10*6/uL (4.50-5.90); RED CELL DISTRI WIDTH 12.5 % (0-14.5); WHITE BLOOD COUNT 7.9 10*3/uL (4.8-10.8)
[2019-07-13 16:38] LABS: ACT PARTIAL THROMBO TIME 24.3 SECONDS (20.0-32.1)
[2019-07-13 16:49] LABS: ALBUMIN 3.3 gm/dl (3.1-4.5); ALKALINE PHOSPHATASE 91 U/L (45-117); BUN 10 mg/dl (7-24); CHLORIDE 108 mmol/L (98-107); LIPASE 101 U/L (73-393); POTASSIUM 3.5 mmol/L (3.5-5.1); SGOT/AST 33 IU/L (3-35); SGPT/ALT 20 U/L (12-78); SODIUM 142 mmol/L (136-145); TOTAL PROTEIN 7.3 gm/dL (6.4-8.2)
[2019-07-13 16:52] LABS: TROPONIN I < 0.015 ng/ml (<0.045)
[2019-07-13 20:00] VITALS: BP 175/101
== END 2019-07-13 18:14 | disposition short-term general hospital (02) ==
LOC: ED 15:55
PROVIDERS: Emergency Medicine
DX: I63.9 Cerebral infarction, unspecified (principal); I10 Essential (primary) hypertension; E11.9 Type 2 diabetes mellitus without complications; J44.9 Chronic obstructive pulmonary disease, unspecified; F17.200 Nicotine dependence, unspecified, uncomplicated; Z86.73 Personal history of transient ischemic attack (TIA), and cerebral infarction without residual deficits; Z79.899 Other long term (current) drug therapy; Z79.82 Long term (current) use of aspirin; Z90.49 Acquired absence of other specified parts of digestive tract; Z86.718 Personal history of other venous thrombosis and embolism

== ENCOUNTER 2019-07-18 14:49 | Inpatient (IN) | payer MEDICARE ==
[~2019-07-18] VITALS: Ht 177.8 cm; Wt 69.4 kg
[2019-07-18 14:55] VITALS: BP 118/64
--- NOTE | 2019-07-18 15:02 | NUR ---
NURSE REPORT TO CHARITY LOO, FOR CONTINUATION OF CARE.
[2019-07-18 15:29] LABS: BASO % 0.1 % (0.0-1.0); EOS % 0.2 % (1.0-4.0); HEMATOCRIT 43.2 % (42.0-52.0); HEMOGLOBIN 14.3 g/dl (14.0-18.0); LYMPH # 1.5 10*3/uL (1.3-4.4); LYMPH % 11.4 % (27.0-41.0); MEAN CELL VOLUME 92.1 fl (80.0-94.0); MEAN CORPUSCULAR HGB 30.5 pg (27.0-31.0); MEAN CORPUSCULAR HGB CONC 33.1 g/dl (33.0-37.0); MONO # 0.9 10*3/uL (0.1-1.0); MONO % 6.7 % (3.0-9.0); NEUT % 81.4 % (47.0-73.0); PLATELET COUNT AUTOMATED 195 10*3/uL (130-400); RED BLOOD COUNT 4.69 10*6/uL (4.50-5.90); RED CELL DISTRI WIDTH 12.6 % (0-14.5); WHITE BLOOD COUNT 13.5 10*3/uL (4.8-10.8)
[2019-07-18 15:42] LABS: ACT PARTIAL THROMBO TIME 24.2 SECONDS (20.0-32.1); INTERNATIONAL NORM RATIO 0.9 (2.0-3.5)
--- NOTE | 2019-07-18 15:43 | NUR ---
DR. TIDWELL SPOKE TO [facility] AND THEY ARE NOT FLYING. THEY RECOMMEND US GETTING A CT A OF THE HEAD THEN CALLING THEM BACK WITH THE RESULTS AND WE WILL MAKE A DECISION FROM THERE.
[2019-07-18 15:44] VITALS: BP 110/65
[2019-07-18 15:44] LABS: ALBUMIN 3.4 gm/dl (3.1-4.5); ALKALINE PHOSPHATASE 94 U/L (45-117); BUN 36 mg/dl (7-24); CHLORIDE 101 mmol/L (98-107); CREATININE 1.82 mg/dL (0.70-1.30); LIPASE 108 U/L (73-393); POTASSIUM 5.1 mmol/L (3.5-5.1); SGOT/AST 39 IU/L (3-35); SGPT/ALT 37 U/L (12-78); SODIUM 134 mmol/L (136-145); TOTAL PROTEIN 7.9 gm/dL (6.4-8.2)
--- NOTE | 2019-07-18 15:49 | NUR ---
IV FLUIDS INITIATED. PT IS LAYING IN BED WITH EYES CLOSED, FAMILY IS AT BEDSIDE. PTS VS ARE STABLE AT THIS POINT. BED IS IN LOW POSITION. SIDE RAILS UP X2. NO SIGNS OF ACUTE DISTRESS. WILL CONTINUE TO MONITOR.
[2019-07-18 15:52] LABS: TROPONIN I < 0.015 ng/ml (<0.045)
[2019-07-18 16:26] LABS: BILIRUBIN 2+ (NEGATIVE); BLOOD 3+ (NEGATIVE); CLARITY SL CLOUDY (CLEAR); COLOR YELLOW (YELLOW); GLUCOSE NEGATIVE (NEGATIVE); KETONE TRACE (NEGATIVE); LEUKO ESTERASE 1+ (NEGATIVE); NITRITE NEGATIVE (NEGATIVE); SPECIFIC GRAVITY >= 1.030 (1.005-1.030)
[2019-07-18 16:32] LABS: BACTERIA 3+
[2019-07-18 16:33] LABS: RBC 16-20 rbc/hpf (0-2); WBC 16-20 wbc/hpf (0-5)
[2019-07-18 16:44] VITALS: BP 151/53
--- NOTE | 2019-07-18 17:08 | NUR ---
PT IS RESTING IN BED WITH EYES CLOSED. FAMILY IS AT BEDSIDE. VS STABLE. NO SIGNS OF ACUTE DISTRESS AT THIS TIME. BED IS IN LOW POSITION. SIDE RAILS UP X2. WILL CONTINUE TO MONITOR.
[2019-07-18 17:10] VITALS: BP 141/58
--- NOTE | 2019-07-18 17:50 | NUR ---
PTS MEDICATION FOR ROCEPHIN WAS SCANNED PRIOR TO ADMIN AND WAS NOT STARTED UNTIL HE HAD THE CULTURES COMPLETED. I AM UNABLE TO EDIT THE TIME.
--- NOTE | 2019-07-18 18:29 | NUR ---
A 58, admitted to , under the services of LUCERO Handley DO with a diagnosis of UTI,METABOLIC ENCEPHALOPATHY,SEPSIS. Chief complaint is STROKE. Patient arrived via stretcher from ER. Monitor applied. Initial assessment completed. Vital signs taken and recorded. LUCERO HANDLEY DO notified of admission to the unit. Orders received. See assessment for past medical history, medications and allergies. Patient and/or family oriented to unit. [facility] visitation policy reviewed. Clothing/patient valuable form completed. CYRIL MOYER
[2019-07-18 18:30] VITALS: BP 150/60
--- NOTE | 2019-07-18 19:03 | NUR ---
SANJUANA OSBORNE TO FAX LIST OF PATIENT PRESCRIPTIONS
[2019-07-18] MEDS ORDERED: MIRTAZAPINE15 M2 PO (19:09)
--- NOTE | 2019-07-18 19:10 | NUR ---
MED REC UP TO DATE.
[2019-07-18 20:00] VITALS: BP 155/61
--- NOTE | 2019-07-18 20:00 | NUR ---
PATIENT IS RESTING IN BED WITH EASY AND REGULAR RESPERS ON ROOM AIR, NONVERBAL PATIENT RESPONDS WITH HEAD NODS AND FOLLOWS COMMANDS. NO S/S OF DISTRESS NOTED AT THIS TIME. BED IS LOW, LOCKED, AND CALL LIGHT IS WITHIN REACH. FAMILY MEMBER IS PRESENT AT BEDSIDE, PERMISSION FOR OVERNIGHT STAY GRANTED BY DAYLIGHT SHIFT DIRECTOR AND MIDNIGHT SHIFT DIRECTOR IS AWARE. WILL CONTINUE TO MONITOR, SEE SHIFT ASSESSMENT.
--- NOTE | 2019-07-18 22:07 | NUR ---
PRN TYLENOL GIVEN FOR A TEMP OF 99.0, CALL LIGHT IS WITHIN REACH. WILL REASSESS.
[2019-07-19] VITALS: BP 150/60
--- NOTE | 2019-07-19 01:07 | NUR ---
BED BATH GIVEN AT THIS TIME, PATIENT TOLERATED WELL. BED LIENS CHANGED. CALL LIGHT IS WITHIN REACH.
--- NOTE | 2019-07-19 02:25 | NUR ---
24 HR. CHART CHECK COMPLETE.
[2019-07-19 06:38] LABS: BASO % 0.3 % (0.0-1.0); EOS % 0.3 % (1.0-4.0); HEMATOCRIT 34.5 % (42.0-52.0); HEMOGLOBIN 11.4 g/dl (14.0-18.0); LYMPH % 15.6 % (27.0-41.0); MEAN CELL VOLUME 93.2 fl (80.0-94.0); MEAN CORPUSCULAR HGB 30.8 pg (27.0-31.0); MEAN PLATELET VOLUME 11.4 fl (9.6-12.3); MONO # 0.9 10*3/uL (0.1-1.0); MONO % 7.1 % (3.0-9.0); NEUT # 9.8 10*3/uL (2.3-7.9); NEUT % 76.5 % (47.0-73.0); PLATELET COUNT AUTOMATED 159 10*3/uL (130-400); RED CELL DISTRI WIDTH 12.3 % (0-14.5); WHITE BLOOD COUNT 12.8 10*3/uL (4.8-10.8)
[2019-07-19 07:08] LABS: ALBUMIN 2.7 gm/dl (3.1-4.5); ALKALINE PHOSPHATASE 74 U/L (45-117); BUN 27 mg/dl (7-24); CHLORIDE 110 mmol/L (98-107); CREATININE 0.85 mg/dL (0.70-1.30); PHOSPHOROUS 2.9 mg/dL (2.5-4.9); SGOT/AST 22 IU/L (3-35); SGPT/ALT 26 U/L (12-78); TOTAL PROTEIN 6.2 gm/dL (6.4-8.2)
[2019-07-19 07:11] LABS: SODIUM 141 mmol/L (136-145)
[2019-07-19 07:31] LABS: POTASSIUM 3.7 mmol/L (3.5-5.1)
[2019-07-19 08:00] VITALS: BP 152/68
[2019-07-19 08:34] LABS: VITAMIN D, 25-HYDROXY 14.3 ng/mL (30-100)
[2019-07-19 12:00] VITALS: BP 130/56
[2019-07-19 16:00] VITALS: BP 140/57
[2019-07-19 20:00] VITALS: BP 138/44
[2019-07-19 20:15] VITALS: BP 140/52
--- NOTE | 2019-07-19 21:00 | NUR ---
PATIENT RESTING IN BED. RESPIRATIONS EASY, NONLABORED. PATIENT SRAVANTHI AT BEDSIDE. SRAVANTHI STATES SHE HAS BEEN STAYING WITH THE PATIENT AND HELPING TAKE CARE OF HIM AND WAS GOING TO STAY AGAIN TONIGHT. SENIOR SAFETY SUPPORT MANAGER NOTIFIED AND PERMISSION WAS GIVEN FOR HER TO STAY. PATIENT IS COOPERATIVE, BUT HAS BEEN NONVERBAL. SRAVANTHI HAS BEEN SPEAKING FOR HIM AND HE WILL ANSWER MY QUESRTIONS WITH HEADS NODS.
--- NOTE | 2019-07-19 22:40 | NUR ---
PATIENT REQUESTING NICOTINE PATCH. OK TO PUT ORDER IN PER .
--- NOTE | 2019-07-19 22:50 | NUR ---
PER PATIENT AND FIANCEE PT WOULD LIKE TO JUST START THE NICOTINE PATCH TOMORROW.
[2019-07-20] VITALS: BP 160/64
--- NOTE | 2019-07-20 02:44 | NUR ---
24 HR chart check completed.
--- NOTE | 2019-07-20 04:32 | NUR ---
Patient sleeping. Respirations relaxed and easy. Siderails up . [place] on. No signs of distress noted. Financee at bedside. Will continue to monitor. AIRAM DAVIS
[2019-07-20 06:48] LABS: BASO % 0.5 % (0.0-1.0); EOS # 0.1 10*3/uL (0.0-0.4); EOS % 0.6 % (1.0-4.0); HEMATOCRIT 31.1 % (42.0-52.0); HEMOGLOBIN 10.4 g/dl (14.0-18.0); LYMPH # 2.1 10*3/uL (1.3-4.4); LYMPH % 25.1 % (27.0-41.0); MEAN CELL VOLUME 94.2 fl (80.0-94.0); MEAN CORPUSCULAR HGB 31.5 pg (27.0-31.0); MEAN CORPUSCULAR HGB CONC 33.4 g/dl (33.0-37.0); MEAN PLATELET VOLUME 11.5 fl (9.6-12.3); MONO # 0.5 10*3/uL (0.1-1.0); MONO % 5.8 % (3.0-9.0); NEUT # 5.6 10*3/uL (2.3-7.9); NEUT % 67.8 % (47.0-73.0); PLATELET COUNT AUTOMATED 142 10*3/uL (130-400); RED CELL DISTRI WIDTH 12.2 % (0-14.5); WHITE BLOOD COUNT 8.3 10*3/uL (4.8-10.8)
[2019-07-20 06:53] LABS: CHLORIDE 110 mmol/L (98-107); CREATININE 0.63 mg/dL (0.70-1.30); POTASSIUM 3.7 mmol/L (3.5-5.1); SODIUM 141 mmol/L (136-145)
[2019-07-20 07:01] LABS: VALPROIC ACID (DEPAKENE) 63.8 ug/ml (50-100)
[2019-07-20 07:03] LABS: BUN 12 mg/dl (7-24)
--- NOTE | 2019-07-20 08:05 | NUR ---
PHYSICAL THERAPY Screen received as well as Physical Therapy orders will follow thank you Elisabeth Rice PT
--- NOTE | 2019-07-20 10:49 | NUR ---
SPEECH THERAPY Patient referred for a modified barium swallow study due to concerns for possible aspiration. Patient with primary diagnosis of UTI, metabolic encephalopathy, and sepsis. PMHx s/f recurrent CVA and TIA, DM2, with history of tobacco use, smoking 1PPD for ten years. Patient presenting to ER with slurred speech and confusion, with concern for CVA. CT of head 07/13 showed "no findings of acute intracranial process." CXR 07/18 revalved no pulmonary edema, pleural effusion, pneumothorax, or consolidation. WBC WNL. Patient currently on soft diet. Patient interviewed prior to MBS. Minimal functional expressive communication. Per case history, patient's brother reports patient speaks to those he is familiar with. Patient able to answer yes/no questions and follow simple verbal commands, however, during the exam his ability to follow simple verbal commands reduced, with some confusion apparent. Oral mech exam revealed reduced lingual and labial strength and ROM with slow rate of voluntary movements. Patient with natural teeth and presenting with baseline wet vocal quality and productive cough with expectoration. Patient assessed with applesauce, banana, honey-like and pudding-like liquids. Piecemeal deglutition observed with trials of food items including applesauce and banana. Pureed and soft consistency otherwise functional, with no penetration/aspiration or residues observed. Patient required assistance with trial of honey-like liquid via cup. Small, clinician controlled sip of honey-like liuqid via cup administered, with resulting penetration and eventual aspiration of liquid with refelxive cough that did not clear the airway or laryngeal vestibule. Independent trials of pudding-like liquid via tsp trialed x3. Piecemeal deglutition again observed, with statis observed with pooling and moderate residue on posterior pharyngeal wall and pyriform sinus. Patient demonstrating coughing, however reflexive coughing appeared to be related to residuals from aspiration of honey-like liquids. Patient recommened soft diet with pudding-like liquids. Patient is at risk for dehydration. Recommend food items high in water content including fruits and vegetables. Patient additionally recommended Osman Free Water Protocol to assist in hydration. Good oral hygience is recommended and required in conjunction of Free Water Protocol. Sips of thin liquid water to be trialed bedside with clinician. Patient additionally recommended safe swallowing strategies including sitting upright during all PO intake, taking small bites and sips, perform hard, dry/dobule swallow between bites to assist in reducing pharyngeal residues. Follow-up speech therapy is recommended to endsure safety and tolerance of recommended diet with use of compensatory/safe swallowing strategies throughout a meal. Dawson Free Water Protocol: -Patient is allowed unthickened WATER 30 minutes following meals and snacks and up until food is consumed -Oral care must be done prior to consuming water -Use appropriate safe swallowing strategies Please contact Speech Therapy with questions regarding this patient. Thank you for your consultation. Wilma Wells MA CCC-HAND SUTURE WINDER
[2019-07-20 12:00] VITALS: BP 136/68
--- NOTE | 2019-07-20 12:23 | NUR ---
Occupational Therapy evaluation completed on the 4th floor with full eval to follow. High complexity level. Precautions: min-mod Ax2, fall risk, bed alarm, IV site, episdes of unresponsiveness, but awake. OT to work on sitting balance during ADL tasks, functional mobility, bed mobility, dressing, grooming and strengthening. Recommend SNF. Thank you for this referral, Lisa Moffett OTR/Jared
--- NOTE | 2019-07-20 14:36 | NUR ---
PHYSICAL THERAPY Eval completed pt is high complexity [id number] recommend SNF at discharge. PT to work on transfers,amb with AD, strengthening,balance and safety. Elisabeth Rice PT
--- NOTE | 2019-07-20 15:27 | NUR ---
SPEECH THERAPY Patient seen this p.m. for swallowing treatment. Patient pleasant and cooperative with family (brother and fiance) present at bedside. Results and recommendations of this morning's MBS shared with family. Questions were additionally answered. Provided education regarding Osman Free Water Protocol including a handout. Patient's nurse Nayeli present to provide oral care before beginning trials of thin liquid. Osman Free Water protocol assists patients in maintaining hydration and improved compliance of thickened liquids. Ice chips were given to patient with clinician assistance. Patient demonstrating refelxive coughing following each trial. Discussed patient comfort and tolerance level with consuming ice chips with reflexive coughing. Patient continued to ask for more trials of ice chips. Patient permitted to consume ice chips or oral swabs following good oral care, 30 minutes after meals and up until consuming meals and snacks. During meals, patient must consume thickened (pudding-like) liquids per MBS recommendation. Recommend Osman Free Water protocol as tolerated with assistance from nurse, aid, or clinician, to ensure correct use with good oral hygiene and at least 30 minutes following meals. Wilma Wells MA CCC-CIRCUS ARTIST
[2019-07-20 16:00] VITALS: BP 123/64
[2019-07-20 20:00] VITALS: BP 200/72
--- NOTE | 2019-07-20 20:00 | NUR ---
IN TO SEE PATIENT. PATIENT HAS NO NEW COMPLAINTS TODAY. PATIENT WAS MOSTLY GIVING HEAD NODS TO QUESTIONS, BUT DID VERBALIZE A FEW THINGS. FIANCEE AT BEDSIDE AND STAYING WITH PT AGAIN TONIGHT. CALL LIGHT IS WITHIN REACH. WILL CONTINUE TO MONITOR.
[2019-07-20 20:15] VITALS: BP 204/66
--- NOTE | 2019-07-20 20:40 | NUR ---
DR. LOPEZ INFORMED OF MANUAL BP 200/72. ORDERS TO BE PUT IN. PT ASYMPTOMATIC.
--- NOTE | 2019-07-20 21:08 | NUR ---
ONE TIME DOSE OF LABATELOL GIVEN ORDERED. PT TOLERATED WELL. BP 204/66 BEFORE GIVING, PULSE 73. BP 177/65 AFTER, P 70. WILL RECHECK AND MONITOR. CALL LIGHT IN REACH.
[2019-07-20 21:20] VITALS: BP 177/65
[2019-07-21] VITALS: BP 174/72
--- NOTE | 2019-07-21 00:08 | NUR ---
INFORMED PTS BP STILL ELEVELATED. BP DOWN TO 174/72. NO NEW ORDERS AT THIS TIME.
--- NOTE | 2019-07-21 04:56 | NUR ---
24 HR chart check completed.
[2019-07-21 06:45] LABS: BASO % 0.4 % (0.0-1.0); EOS # 0.1 10*3/uL (0.0-0.4); EOS % 0.7 % (1.0-4.0); HEMATOCRIT 32.6 % (42.0-52.0); LYMPH # 2.3 10*3/uL (1.3-4.4); LYMPH % 27.7 % (27.0-41.0); MEAN CELL VOLUME 92.9 fl (80.0-94.0); MEAN CORPUSCULAR HGB 31.3 pg (27.0-31.0); MEAN CORPUSCULAR HGB CONC 33.7 g/dl (33.0-37.0); MEAN PLATELET VOLUME 10.5 fl (9.6-12.3); MONO # 0.6 10*3/uL (0.1-1.0); MONO % 6.8 % (3.0-9.0); NEUT # 5.2 10*3/uL (2.3-7.9); PLATELET COUNT AUTOMATED 145 10*3/uL (130-400); RED BLOOD COUNT 3.51 10*6/uL (4.50-5.90); RED CELL DISTRI WIDTH 12.1 % (0-14.5); WHITE BLOOD COUNT 8.1 10*3/uL (4.8-10.8)
[2019-07-21 07:06] LABS: BUN 6 mg/dl (7-24); CHLORIDE 107 mmol/L (98-107); CREATININE 0.65 mg/dL (0.70-1.30); POTASSIUM 3.7 mmol/L (3.5-5.1); SODIUM 139 mmol/L (136-145)
[2019-07-21 11:51] VITALS: BP 154/51
--- NOTE | 2019-07-21 13:55 | NUR ---
PHYSICAL THERAPY Patient supine in bed at time of arrival; patient fiance present in room. Performance of bed mobility supine<->sit requiring Paxton-modAx1 for upper/lower body management; RUBBER ENGRAVER providing tactile/verbal cues for technique and use of bed rail with fair follow through. Patient sat EOB for ~8 minutes unsupported with CGA-- occasional Paxton due to lateral/retro LOB ; with emphasis on core/trunk strength, activity tolerance and sitting balance in order to improve transfers, gait and functional activities. Pt performed STS transfer EOB->FWW requiring minAx2 with tactile/verbal/visual cues for hand placement and safe technique. Patient tolerated 2 trials, up to 1 minute standing tolerance prior to sitting. Once standing, patient required frequent tactile/verbal cues for postural awareness. Pt benefits from cues for visual focus in order to improve posture. Pt presents with flexed posture resulting in decreased hip/knee extension once standing. Patient performed supine B LE ther-ex, AROM/AAROM, for strength, endurance and ROM: hip flex/ext with min manual resistance, ankle PF/DF, SLR with 5 sec hold x 8 reps. Verbal/tactile cues for technique, improved ROM and progression of exercises throughout. Intermittent rest breaks provided, due to fatigue. Patient supine in bed at session end with call light and fiance present in room. Patient voiced no c/o this date. Milena Lobo RUBBER ENGRAVER
[2019-07-21 16:00] VITALS: BP 186/62
--- NOTE | 2019-07-21 16:51 | NUR ---
10 IV LABETALOL GIVEN FOR FOR BP 220/100. WILL MONITOR.
--- NOTE | 2019-07-21 18:23 | NUR ---
PT'S BP NOW 140/66. WILL CONTINUE TO MONITOR.
--- NOTE | 2019-07-21 19:00 | NUR ---
IN TO PATIENTS ROOM WITH NURSE STEFANIE TO SEE PATIENT. PATIENT SEEMS TO BE DOING BETTER TODAY. PATIENT ASKED IF HE IS FEELING BETTER AND NODDED HIS HEAD YES. FIANCEE AT BEDSIDE AND SAYS HE HAS BEEN MUCH BETTER TODAY AND HAS BEEN DOING GOOD WITH EATING AND DRINKING. REPIRATIONS EASY, NONLABORED. NO NEW COMPLAINTS AT THIS TIME. CALL LIGHT IN REACH. WILL MONITOR.
[2019-07-21 20:00] VITALS: BP 145/50
[2019-07-22] VITALS: BP 151/48
--- NOTE | 2019-07-22 02:44 | NUR ---
24 HR chart check completed.
[2019-07-22 08:40] VITALS: BP 185/58
--- NOTE | 2019-07-22 10:10 | NUR ---
PT NOTED TO HAVE SOME SKIN IRRITATION TO SITE WHERE NICOTINE PATCH WAS PLACED. PT'S FIANCE' STATES WHILE IN [facility] HE WAS WEARING THE ROUND ONE, WHICH WOULD BE THE 14MG PATCH. STATES HE HAS BEEN SMOKING HALF PACK PER DAY. SPOKE WITH DR KEARNEY, ORDER RECEIVED TO CHANGE PATCH TO 14MG DOSE.
[2019-07-22 12:21] VITALS: BP 165/58
--- NOTE | 2019-07-22 13:39 | NUR ---
PT SLEEPING, NO DISTRESS NOTED.
[2019-07-22 16:00] VITALS: BP 160/68
--- NOTE | 2019-07-22 19:15 | NUR ---
PATIENT RESTING IN BED WITH SIGNIFICANT OTHER AT BEDSIDE. DENIES PAIN OR NEEDS AT THIS TIME. BED IN LOW LOCKED POSITION, CALL LIGHT IN REACH
[2019-07-22 20:00] VITALS: BP 155/71
--- NOTE | 2019-07-22 22:02 | NUR ---
DR GAGE AWARE OF PATIENT CRACKLES AND NEEDING SUCTIONED. RESPIRATORY CALLED, RENEE TO FLOOR. ORDER FOR NT SUCTION AND CHEST XRAY
--- NOTE | 2019-07-22 22:06 | NUR ---
NORMAL SALINE INFUSION OFF AT THIS TIME PER ORDER
--- NOTE | 2019-07-22 22:10 | NUR ---
PATIENT'S SIGNIFICANT OTHER AT BEDSIDE, ASKED THREE TIMES TO MOVE TO THE OTHER SIDE OF THE BED SO THIS RN COULD SET UP SUCTION. SIGNIFICANT OTHER DID NOT MOVE, THIS RN HAD TO CLIMB OVER THE CHAIR TO SET UP SUCTION. RT RENEE AT BEDSIDE TO NT SUCTION PATIENT. PROCEDURES EXPLAINED TO SIGNIFICANT OTHER WITH UNDERSTANDING VERBALIZED. AFTER ORAL SUCTION AND ASSESSMENT OF LUNG SOUNDS, NT SUCTION WAS NOT PERFORMED. PATIENT SITTING UPRIGHT. SIGNIFICANT OTHER LEANING OVER PATIENT'S HEAD WITH BOTH HANDS ON PATIENT'S HEAD. EXPLAINED TO PATIENT AND SIGNIFICANT OTHER ABOUT CHEST XRAY BEING ORDERED AND TURNING THE FLUIDS OFF. S/O STATES "HOW WILL HE GET FLUIDS BECAUSE HE IS NOT DRINKING". EXPLAINED TO S/O THAT THE PATIENT MAY BE GETTING FLUIDS IN HIS LUNGS AND THAT IS WHAT THE XRAY IS BEING PERFORMED FOR, SO THE FLUIDS ARE BEING SHUT OFF FOR THE TIME BEING. S/O VERBALIZED UNDERSTANDING.
--- NOTE | 2019-07-22 22:45 | NUR ---
PA'S JIAN AND RUDY CHANGED PATIENT'S LINENS AND BED. S/O WAS ASKED SEVERAL TIMES TO MOVE ASIDE SO SHE DID NOT GET ELBOWED. S/O REFUSED TO MOVE AND STOOD RIGHT BESIDE PATIENT'S BEDSIDE. PATIENT'S HEELS OFFLIFTED WITH PILLOWS, S/O STATED THAT "THIS IS NOT WHAT PHYSICAL THERAPY TOLD ME TO DO". IT WAS EXPLAINED TO THE S/O WHY THE PILLOWS WERE PUT UNDER THE PATIENT'S HEELS. S/O CONTINUED TO INSIST THAT THE CARE OF THE PATIENT WAS BEING DONE WRONG. S/O STATED THAT THIS RN AND RT RENEE DID NOT SUCTION THE PATIENT THOROUGHLY ENOUGH BECAUSE THE PATIENT IS STILL COUGHING. SHE STATES "GOOD THING I WAS HERE AND DID NOT LET THEM PUT A TUBE DOWN HIS NOSE". THIS RN CHECKED ON PATIENT TO MAKE SURE ALL NEEDS WERE MET FOR PATIENT AND S/O. PATIENT DENIES ANY NEEDS. S/O STATES "I HAD CANCER AND DRY MOUTH SO WHOEVER TOLD YOU HE NEEDED SUCTIONED MISUNDERSTOOD ME". SHE STATES "I WILL FIGHT WHOEVER WOULD TRY TO MAKE ME LEAVE HIS SIDE BECAUSE I SAVED HIS LIFE AT [facility] WHEN THOSE NURSES WERE NOT PAYING ANY ATTENTION TO HIM". PATIENT LUNG SOUNDS CLEAR AT THIS TIME. PATIENT DENIES ANY NEEDS OR COMPLAINTS. BLANKETS AND PILLOW AT BEDSIDE IN CHAIR FOR S/O. ARRANGER ASSEMBLER SUBHASH MADE AWARE OF SITUATION.
--- NOTE | 2019-07-22 23:47 | NUR ---
24 HR chart check completed.
[2019-07-23] VITALS: BP 162/62
--- NOTE | 2019-07-23 00:16 | NUR ---
ADDITIONAL SUCTION SET UP ON OPPOSITE SIDE OF BED DUE TO SINGIFICANT OTHER SLEEPING IN FRONT OF WALL SUCTION AND REFUSING TO MOVE.
--- NOTE | 2019-07-23 00:41 | NUR ---
ALERTED BY NURSE THAT THE PATIENT WAS GURGLING IN HIS SLEEP. AFTER MULTIPLE ATTEMPTS TO PROVOKE A GOOD ENOUGH COUGH, PATIENT WAS ELECTED FOR NASO-TRACHEAL SUCTION BY RESPIRATORY THERAPIST. ON ONE ATTEMPT PATIENT WAS SUCTIONED FOR A SMALL TO MODERATE AMOUNT OF WHITE FROTHY SECRETIONS,MOSTLY SALIVA BASE.MIKE AMOUNT OF BLOOD PRESENT ON THE NT CANNULA. PATIENT ABLE TO TOLERATE THE PROCEDURE. FIANCE ASLEEP AT BEDSIDE ON ENTRANCE.
--- NOTE | 2019-07-23 02:53 | NUR ---
PATIENT RESTING IN BED WITH EYES CLOSED. RESPERATIONS REGULAR AND EASY. NO CRACKLES OR GURGLING HEARD. FIANCE ASLEEP AT BEDSIDE
--- NOTE | 2019-07-23 06:31 | NUR ---
PATIENT RESTING IN BED WITH EYES CLOSED. RESPS EASY AND REGULAR. NO S/S OF DISTRESS. FIANCE' SLEEPING IN CHAIR AT BEDSIDE. BED IN LOWEST POSITION, BED ALARM ON, CALL LIGHT IN REACH
[2019-07-23 06:36] LABS: CREATININE 0.69 mg/dL (0.70-1.30)
[2019-07-23 06:42] LABS: BASO # 0.1 10*3/uL (0.0-0.1); BASO % 0.6 % (0.0-1.0); EOS # 0.1 10*3/uL (0.0-0.4); EOS % 1.1 % (1.0-4.0); HEMATOCRIT 32.8 % (42.0-52.0); HEMOGLOBIN 10.9 g/dl (14.0-18.0); LYMPH % 22.6 % (27.0-41.0); MEAN CELL VOLUME 93.2 fl (80.0-94.0); MEAN CORPUSCULAR HGB CONC 33.2 g/dl (33.0-37.0); MEAN PLATELET VOLUME 11.1 fl (9.6-12.3); MONO # 0.6 10*3/uL (0.1-1.0); MONO % 6.6 % (3.0-9.0); NEUT # 6.1 10*3/uL (2.3-7.9); NEUT % 68.7 % (47.0-73.0); RED BLOOD COUNT 3.52 10*6/uL (4.50-5.90); RED CELL DISTRI WIDTH 12.3 % (0-14.5); WHITE BLOOD COUNT 8.9 10*3/uL (4.8-10.8)
[2019-07-23 06:45] LABS: PLATELET COUNT AUTOMATED 203 10*3/uL (130-400)
[2019-07-23 08:00] VITALS: BP 141/61
--- NOTE | 2019-07-23 09:16 | NUR ---
ALONZO GONZALEZ [id number] Please refer to the physician's history and physical for past medical history, comorbid conditions, and allergies. Diagnosis: UTI METABOLIC ENCEPHALOPATHY SEPSIS Harsh Score: 11,HIGH RISK WOUND DESCRIPTIONS: Surface the patient is resting on: Position Pro SKIN PREVENTION RECOMMENDATION: 1. Pressure redistribution support surface as appropriate 2. Elevate heels 3. Remove boots/TEDS every shift and reapply 4. Head of bed 30 degrees as tolerated 5. Assess nutrition and hydration 6. Manage moisture 7. Avoid the use of containment devices while in bed 8. Use absorptive products on surfaces limit layers of linens on bed 9. Turn and reposition every 1-2 hours in bed and every 1 hour in chair as tolerated 10. Weight shifts every 15 minutes while up in chair 11. Offloading with pillows or device to keep heels elevated off bed 12. Monitor skin at least every shift 13. Inspect under medical devices twice a day WOUND TREATMENT RECOMMENDATIONS: CLEANSE WITH SOAP AND WATER APPLY HYDRAGUARD EVERY SHIFT AND PRN SOILING. WHEELCHAIR CUSHION WHEN OUT OF BED.
--- NOTE | 2019-07-23 09:41 | NUR ---
Dr. Humphreys notified of wound care recommendations.
--- NOTE | 2019-07-23 10:10 | NUR ---
PHYSICAL THERAPY Patient seen this am 1;1 for therapy visit and was supine in bed with Significant Other present upon therapist arrival. Patient identified by name / and was very soft spoken, actually hard to hear some of his responses. Significant Other provided some background information related to PLOF as patient transfers supine to sit EOB with MOD A. Patient needed a minute or so of static sit tolerance to collect himself and was educated on safe standing transfer technique. Patient nodded his head with understanding and completed several sit to stand transfers at bedside, MOD A with use of walker standing support. Patient also ambulated 40'x 1, wh walker, MIN/CGA, demonstrating "shuffling" gait pattern with decreased stride. Patient very unsteady during all turns and returned to EOB sit with quick onset of fatigue. Patient transfered sit to supine, MOD A and remained in bed with call light, tray table, telephone and bed alarm for safety. Will continue per POC as tolerated, total treatment time 16 minutes. Thanh Zaman, GUEST EXPERIENCE SPECIALIST
--- NOTE | 2019-07-23 10:30 | NUR ---
OT NOTE Pt was seen this A.M. 1:1 for 23 minute OT session. Upon arrival pt was supine in bed with fiance at bedside. Pt transferred supine to sit EOB with modA for assist with UB. While sitting EOB challenged pt's dynamic sitting balance needed for increased I in self care tasks and functional transfers. Pt was able to maintain F- sitting balance throughout while weight shifting, crossing midline, and reaching over all planes of motion. Sit to stand completed from bed level with modA and use of w/w. Pt then completed functional mobility into the bathroom with CGA and use of w/w for UE support. There he transferred on to standard commode with Paxton and use of grab bar for UE support. He then transferred off of standard commode with modA and use of grab bar for UE support. Pt then transferred back into bed sit to supine with Paxton. There he was left with call light in hand, tray table in place, and bed alarm activated for safety. Continue with rec D/C plan to SNF. CATHIE Thompson
--- NOTE | 2019-07-23 11:38 | NUR ---
DOCUMENTATION ENGINEER received notice the patient wants to be referred to [facility]. DOCUMENTATION ENGINEER faxed new referral to [facility]. Will await acceptance/denial. -CUAUHTEMOC English
[2019-07-23 12:00] VITALS: BP 166/61
--- NOTE | 2019-07-23 13:33 | NUR ---
SPEECH PATHOLOGY Patient was seen for swallowing treatment this date during lunchtime meal. Patient was alert and pleasant. He was self feeding, with all items taken today being puree including mashed potatoes and pudding. He consumed 100% of food items. Throughout the meal he required clinician cues to slow down and take smaller amounts. His liquids were thickened by clinician to pudding consistency. He took a couple bites only. His significant other was present. When asked if she was aware of the results and daren. from last week's MBS she responded that she was. She requested a written copy of recommendations to provide to the [facility] that he will be discharged to. This was provided to her. Clinician thickened patient's liquid to pudding consistency in front of her, and attempted to educate her on thickening process. She reported that she will not be the one thickening his liquids and stated that she did not feel competent to do this. Clinician provided further explanation, but she continued to state that she would not be the one thickening any of his liquids, that it would have to be done by staff. Clinician stated that any liquid he takes will need thickened, such as broth in soup or milk in cereal, and that at some point she may need to thicken something and would need to know how. Encouragement was provided to her on the ease of thickening liquids but she continued to state that she was not competent in this. Continue therapy plan to further educate on safety precautions. LAWRENCE HUI MSCCC-RESIDENT SERVICES COORDINATOR
--- NOTE | 2019-07-23 15:00 | NUR ---
Drug Enforcement Agent in to talk to patient. Patient states lives at HOME with BROTHER. There are FEW steps in the home. Physician: Rachael GONZALEZ Pharmacy: [facility] health services: NONE Patient's level of ADLs: MODERATE ASSIST Patient has working utilities: YES DME: NONE Follow-up physician's appointment after d/c: WILL BE MADE BY HOSPITALIST NURSE DIRECTOR ON DISCHARGE Does patient want to access PORTAL?: NO Discharge plan PT LIVES AT HOME WITH BROTHER. FAMILY AT BEDSIDE AND STATE THEY WANT HIM TO GO TO [facility] FOR REHAB PRIOR TO GOING BACK HOME. HEAD FILTER TANK TENDER HELPER AWARE AND REFERRAL HAS BEEN MADE. WILL CONTINUE TO FOLLOW. . ADELAIDA MUHAMMAD
[2019-07-23 16:00] VITALS: BP 159/64
[2019-07-23 20:00] VITALS: BP 151/72
--- NOTE | 2019-07-23 21:22 | NUR ---
PATIENT RESTING IN BED NO NEEDS MADE. MEDICATIONS CRUSHED AND PUT IN APPLESAUCE. PATIENT NEEDED COACHED ON WHEN TO SWALLOW. FIANCE SLEEPING IN CHAIR AT BEDSIDE.
--- NOTE | 2019-07-23 22:07 | NUR ---
NURSE CALLED TO BEDSIDE BY ORVILLE. PATIENT SLEEPING IN BED. ORVILLE STATES THAT THE PATIENT KEEPS GETTING "THINGS" ON HIS HEAD AFTER HIS STROKES AND SHE JUST NOW REMEMBERED. ANOOP VELAZCO SEEN ON PATIENT'S HEAD.
--- NOTE | 2019-07-23 23:59 | NUR ---
PATIENT RESTING IN BED WITH EYES CLOSED. RESPIRATIONS EASY AND REGULAR. FIANCE SLEEPING IN CHAIR AT BEDSIDE. BED IN LOW LOCKED POSITION
[2019-07-24] VITALS: BP 140/72
--- NOTE | 2019-07-24 01:22 | NUR ---
24 HR chart check completed.
--- NOTE | 2019-07-24 06:18 | NUR ---
PATIENT RESTING IN BED WITH NO S/S OF DISTRESS. FIANCE AT BEDSIDE SLEEPING. BED IN LOWEST POSITION, CALL LIGHT IN REACH
[2019-07-24 08:00] VITALS: BP 136/50
--- NOTE | 2019-07-24 08:46 | NUR ---
Patient has been accepted at [facility] and can go today if medically stable. INSTRUMENT REPAIR SUPERVISOR completed HENs. -CUAUHTEMOC English
--- NOTE | 2019-07-24 09:03 | NUR ---
Dr. Walsh notified of wound care recommendations.
--- NOTE | 2019-07-24 10:58 | NUR ---
SPEECH PATHOLOGY Patient was seen for treatment this am, conducted during breakfast meal. His significant other was present throughout session. Patient's breakfast consisted of oatmeal, chocolate pudding and chuy edu, thickened to pudding consistency. Patient was awake but becoming fatigued as meal progressed. Congested cough was displayed at rest and occasionally during meal. He fed himself and demonstrated slow rate during feeding. He was cued to take breaks after every several bites, in order to take dry swallows, to ensure clearance of his pharynx. He was given chuy edu which was thickened to pudding consistency by clinician. Education was again provided to significant other regarding thickening of liquids to pudding consistency and she was shown the chuy edu once it was thickened to demonstrate its appearance. When asked if she had any questions regarding thickening, his diet or any safe swallow precautions, she stated that she did not and that she understood all the information that had been provided. Recommend patient remain on pureed diet and pudding liquids at this time. He is scheduled for discharge today to [facility]. [facility] to ensure use of strategies, diet recommendation and use of Osman water protocol once he is trialed with sips of water to determine safety with this. Osman water protocol has not been conducted at this facility due to treatments being conducted during a meal over the last couple days. Also recommend repeat MBS after several weeks of therapy to determine progress and continued need for pudding liquids. Thank you for this referral. LAWRENCE HUI MSCCC-CASH PERSON
[2019-07-24] MEDS ORDERED: LISINOPRIL10 M1 PO (11:01)
[2019-07-24] MEDS ORDERED: VITAMIN D32000 UNI1 PO (11:01)
[2019-07-24] MEDS ORDERED: NATURE'S BLEND F1 MG PO (11:01)
--- NOTE | 2019-07-24 11:23 | NUR ---
PT HAS BEEN ACCEPTED TO [facility] AND CAN GO TODAY. WILL CONTINUE TO FOLLOW.
[2019-07-24 12:00] VITALS: BP 134/58
--- NOTE | 2019-07-24 13:34 | NUR ---
DYE LAB TECHNICIAN notified of patient discharge. DYE LAB TECHNICIAN spoke with CHARITY Hamilton. DYE LAB TECHNICIAN reached out to [facility]. DYE LAB TECHNICIAN arranged for a 2:30pm package pick up. DYE LAB TECHNICIAN attempted to reach out to the patients brother Anthony. DYE LAB TECHNICIAN left a message for return call. Patient kervin is coming into this facility to sign discharge papers. DYE LAB TECHNICIAN will notify her of transport time when she arrives. CUAUHTEMOC faxed discharge orders to [facility]. -CUAUHTEMOC English
--- NOTE | 2019-07-24 14:50 | NUR ---
Discharge instructions reviewed with patient/family. Patient receptive and verbalizes understanding. Follow-up care arranged. Written instructions given to patient/family. HEPLOCK DISCONTINUED. WOUND PHOTO TAKEN OF BUTTOCKS (NO OPEN AREA NOTED BUT ADMIT PHOTO TAKEN). PATIENT TAKEN OFF FLOOR BY CARD AND TRANSFERRED VIA [facility]. THOMPSON GODOY
--- NOTE | 2019-07-25 07:45 | NUR ---
OCCUPATIONAL THERAPY CO-SIGN I approve of the Occupational Therapy notes written above. MISHEL MORALES OTR/Jared
--- NOTE | 2019-07-26 07:53 | NUR ---
PHYSICAL THERAPY CO-SIGN I approve of the Physical Therapy notes written above. Elisabeth Rice PT
== END 2019-07-24 15:49 | disposition other institution (70) | DRG 871 ==
LOC: ED 14:49 → 5E 17:47 → EDHOLD 17:47 → 4E 18:11 → 5E 07-22 17:52
PROVIDERS: Emergency Medicine; Internal Medicine; ADMIT Internal Medicine
PROC: BD1BYZZ Fluoroscopy of Mouth/Oropharynx using Other Contrast (ICD-10-PCS; principal; 2019-07-20)
DX: A41.9 Sepsis, unspecified organism (principal); G93.41 Metabolic encephalopathy; N17.0 Acute kidney failure with tubular necrosis; N39.0 Urinary tract infection, site not specified; E87.1 Hypo-osmolality and hyponatremia; R74.0 Nonspecific elevation of levels of transaminase and lactic acid dehydrogenase [LDH]; R13.10 Dysphagia, unspecified; J38.7 Other diseases of larynx; E11.65 Type 2 diabetes mellitus with hyperglycemia; D64.9 Anemia, unspecified; I10 Essential (primary) hypertension; F17.210 Nicotine dependence, cigarettes, uncomplicated; B96.20 Unspecified Escherichia coli [E. coli] as the cause of diseases classified elsewhere; Z71.6 Tobacco abuse counseling; Z86.73 Personal history of transient ischemic attack (TIA), and cerebral infarction without residual deficits; Z91.81 History of falling; Z87.01 Personal history of pneumonia (recurrent); Z90.49 Acquired absence of other specified parts of digestive tract; Z83.3 Family history of diabetes mellitus; Z81.8 Family history of other mental and behavioral disorders; Z80.3 Family history of malignant neoplasm of breast